=== PATIENT | female | born 1970 | race Caucasian/White ===

== ENCOUNTER 2017-01-28 16:55 | Inpatient (IN) | payer SELFPAY ==
[~2017-01-28] VITALS: Ht 167.6 cm; Wt 106.4 kg
[2017-01-28 17:13] LABS: DAU SCREEN DISCLAIMER
[2017-01-28 17:31] LABS: ASPARTATE AMINO TRANSFERASE 18 U/L (15-37); BLOOD UREA NITROGEN 12 mg/dL (7-18)
[2017-01-28 17:39] LABS: ACETAMINOPHEN < 2 mcg/mL (10-30)
[2017-01-28] MEDS: LORazepam 1MG TABLET PO ONE ×2 (17:50→18:15)
[2017-01-28] MEDS ORDERED: LORazepam 1MG TABLET ONE (18:15)
[2017-01-28] MEDS ORDERED: CEFTRIAXONE PMX 1GM/50ML 50 ML ONE (19:33)
[2017-01-28] MEDS ORDERED: QUET100T4 PO (19:44)
[2017-01-28] MEDS ORDERED: PROP40TA PO (19:44)
[2017-01-28] MEDS ORDERED: SERT50TA PO (19:44)
[2017-01-28] MEDS ORDERED: SODIUM CHLORIDE 0.9% 1,000ML IVBOLUS ONE (20:00)
[2017-01-28] MEDS ORDERED: CEFTRIAXONE 1,000 MG in SODIUM CHLORIDE 0.9% 50 ML IV ONE (21:00)
[2017-01-28] MEDS ORDERED: ONDANSETRON ODT 4 MG PO PRN (21:30)
[2017-01-28] MEDS ORDERED: RANI-276 PO (21:55)
[2017-01-28] MEDS ORDERED: IBUP-1222 PO (21:55)
[2017-01-28] MEDS ORDERED: METF500T4 PO (21:55)
[2017-01-28] MEDS ORDERED: LORA-445 PO (21:55)
[2017-01-28] MEDS ORDERED: DULO30CA2 PO (21:55)
[2017-01-28] MEDS ORDERED: DULO60CA7 PO (21:55)
[2017-01-28] MEDS ORDERED: METO25TA35 PO (21:55)
[2017-01-28] MEDS ORDERED: LISI-170 PO (21:55)
[2017-01-28] MEDS ORDERED: BUSP10TA PO (21:55)
[2017-01-28] MEDS ORDERED: TRAM100T2 PO (21:55)
[2017-01-29] MEDS: LORazepam 0.5MG TABLET PO SCH ×3 (00:04→21:13)
[2017-01-29] MEDS: NS + 20MEQ KCL 1,000 ML IV SCH ×2 (00:04→09:02)
[2017-01-29] MEDS: METOPROLOL TARTRATE 25 MG TABLET PO SCH ×3 (00:05→21:13)
[2017-01-29] MEDS: FAMOTIDINE 20 MG TABLET PO SCH ×3 (00:05→21:13)
[2017-01-29] MEDS: BUSPIRONE 10 MG TABLET PO SCH ×3 (00:05→21:13)
[2017-01-29] MEDS: metFORMIN 500 MG TABLET PO SCH ×3 (00:05→21:13)
[2017-01-29 00:30] VITALS: BP 157/100
[2017-01-29 01:52] VITALS: BP 138/88
[2017-01-29] MEDS ORDERED: ZOLPIDEM 5MG TABLET PO ONE ×3 (02:30→22:30)
[2017-01-29 07:49] VITALS: BP 123/79
[2017-01-29] MEDS: LISINOPRIL 20 MG TABLET PO SCH (09:03)
[2017-01-29] MEDS: DULOXETINE 30 MG CAPSULE.DR PO SCH ×2 (09:03→21:13)
[2017-01-29 13:59] VITALS: BP 124/81
[2017-01-29] MEDS: IBUPROFEN 600 MG TABLET PO PRN (14:56)
[2017-01-29 15:44] VITALS: BP 138/107
[2017-01-29 18:48] LABS: IS PT STATUS REG ER OR PRE ER? NO
[2017-01-29 20:00] VITALS: BP 140/92
[2017-01-29] MEDS ORDERED: CEFTRIAXONE 1,000 MG IM SCH ×2 (21:00→22:03)
[2017-01-29] MEDS ORDERED: LIDOCAINE 1%, 10ML INFIL ONE (22:30)
[2017-01-30 01:24] LABS: IS PT STATUS REG ER OR PRE ER? NO
[2017-01-30 01:25] VITALS: BP 118/80
[2017-01-30] MEDS ORDERED: LORazepam 0.5MG TABLET PO ONE (01:30)
[2017-01-30] MEDS: NS + 20MEQ KCL 1,000 ML IV SCH (02:59)
[2017-01-30 08:00] VITALS: BP 120/85
[2017-01-30] MEDS: LORazepam 0.5MG TABLET PO SCH (09:09)
[2017-01-30] MEDS: BUSPIRONE 10 MG TABLET PO SCH ×2 (09:10→21:01)
[2017-01-30] MEDS: SULFAMETH./TRIMETHOPRIM DS 800MG/160MG TABLET PO SCH ×2 (09:10→21:00)
[2017-01-30] MEDS: LISINOPRIL 20 MG TABLET PO SCH (09:10)
[2017-01-30] MEDS: FAMOTIDINE 20 MG TABLET PO SCH ×2 (09:10→21:00)
[2017-01-30] MEDS: DULOXETINE 30 MG CAPSULE.DR PO SCH ×2 (09:11→21:01)
[2017-01-30] MEDS: metFORMIN 500 MG TABLET PO SCH ×2 (09:11→21:00)
[2017-01-30] MEDS: METOPROLOL TARTRATE 25 MG TABLET PO SCH ×2 (09:11→21:00)
[2017-01-30] MEDS ORDERED: SULF1TAB3 PO (11:20)
[2017-01-30 14:24] VITALS: BP 149/92
[2017-01-30] MEDS: LORazepam 1MG TABLET PO PRN ×2 (14:40→22:57)
[2017-01-30 15:54] LABS: HCG UR OBC PASS
[2017-01-30 19:36] VITALS: BP 125/83
[2017-01-30] MEDS: LORazepam 1MG TABLET PO SCH (21:01)
[2017-01-31 08:15] VITALS: BP 120/86
[2017-01-31] MEDS: METOPROLOL TARTRATE 25 MG TABLET PO SCH ×2 (08:42→22:04)
[2017-01-31] MEDS: BUSPIRONE 10 MG TABLET PO SCH ×2 (08:42→22:04)
[2017-01-31] MEDS: metFORMIN 500 MG TABLET PO SCH ×2 (08:42→22:03)
[2017-01-31] MEDS: LORazepam 1MG TABLET PO SCH ×2 (08:42→21:00)
[2017-01-31] MEDS: SULFAMETH./TRIMETHOPRIM DS 800MG/160MG TABLET PO SCH ×2 (08:43→22:04)
[2017-01-31] MEDS: LISINOPRIL 20 MG TABLET PO SCH (08:43)
[2017-01-31] MEDS: DULOXETINE 30 MG CAPSULE.DR PO SCH ×2 (08:43→22:04)
[2017-01-31] MEDS: FAMOTIDINE 20 MG TABLET PO SCH ×2 (08:43→22:04)
[2017-01-31] MEDS ORDERED: PSEUDOEPHEDRINE 30 MG TABLET PO PRN (12:00)
[2017-01-31] MEDS ORDERED: ACETAMINOPHEN 325 MG TABLET PO PRN (12:00)
[2017-01-31 19:45] VITALS: BP 118/87
[2017-01-31] MEDS: LORazepam 1MG TABLET PO PRN (22:04)
[2017-02-01] MEDS: LORazepam 1MG TABLET PO PRN ×2 (04:52→20:05)
[2017-02-01 08:00] VITALS: BP 98/65
[2017-02-01] MEDS: METOPROLOL TARTRATE 25 MG TABLET PO SCH ×2 (08:42→22:19)
[2017-02-01] MEDS: SULFAMETH./TRIMETHOPRIM DS 800MG/160MG TABLET PO SCH ×2 (08:42→22:19)
[2017-02-01] MEDS: DULOXETINE 30 MG CAPSULE.DR PO SCH ×2 (08:42→22:19)
[2017-02-01] MEDS: FAMOTIDINE 20 MG TABLET PO SCH ×2 (08:42→22:19)
[2017-02-01] MEDS: LISINOPRIL 20 MG TABLET PO SCH (08:42)
[2017-02-01] MEDS: LORazepam 1MG TABLET PO SCH (08:43)
[2017-02-01] MEDS: IBUPROFEN 600 MG TABLET PO PRN (08:43)
[2017-02-01] MEDS: metFORMIN 500 MG TABLET PO SCH ×2 (08:43→21:00)
[2017-02-01] MEDS: BUSPIRONE 10 MG TABLET PO SCH ×2 (08:43→22:19)
[2017-02-01 20:24] VITALS: BP 124/64
[2017-02-02 08:42] VITALS: BP 144/91
[2017-02-02] MEDS: METOPROLOL TARTRATE 25 MG TABLET PO SCH (09:17)
[2017-02-02] MEDS: SULFAMETH./TRIMETHOPRIM DS 800MG/160MG TABLET PO SCH (09:17)
[2017-02-02] MEDS: BUSPIRONE 10 MG TABLET PO SCH (09:17)
[2017-02-02] MEDS: DULOXETINE 30 MG CAPSULE.DR PO SCH (09:18)
[2017-02-02] MEDS: LORazepam 1MG TABLET PO PRN ×2 (09:22→15:26)
[2017-02-02] MEDS: metFORMIN 500 MG TABLET PO SCH (10:16)
[2017-02-02] MEDS: FAMOTIDINE 20 MG TABLET PO SCH (11:38)
[2017-02-02] MEDS: LISINOPRIL 20 MG TABLET PO SCH (11:38)
[2017-02-02] MEDS: IBUPROFEN 600 MG TABLET PO PRN (11:41)
== END 2017-02-02 18:30 | DRG 690 ==
LOC: ED 20:06 → INTOOBSV 20:40 → EDIP 20:40 → 3NE 22:58 → OBSVTOIN 01-30 09:33 → 3E 01-30 13:46
PROVIDERS: ADMIT Family Medicine; ATTEND Family Medicine
DX: N30.00 Acute cystitis without hematuria (principal); R45.851 Suicidal ideations; E11.9 Type 2 diabetes mellitus without complications; E66.9 Obesity, unspecified; F32.9 Major depressive disorder, single episode, unspecified; F43.10 Post-traumatic stress disorder, unspecified; G89.4 Chronic pain syndrome; I10 Essential (primary) hypertension; K21.9 Gastro-esophageal reflux disease without esophagitis; R07.9 Chest pain, unspecified; M54.2 Cervicalgia; M54.5 Low back pain; M79.671 Pain in right foot; G47.9 Sleep disorder, unspecified; R51 Headache; Z68.37 Body mass index [BMI] 37.0-37.9, adult; Z88.1 Allergy status to other antibiotic agents; Z83.3 Family history of diabetes mellitus; Z82.41 Family history of sudden cardiac death; Z87.820 Personal history of traumatic brain injury; Z88.5 Allergy status to narcotic agent; Z90.49 Acquired absence of other specified parts of digestive tract
CPT/HCPCS: 36415; 71010; 80053; 80307; 80329; 81001; 81025; 83605; 84145; 84484; 85025; 87040; 87086; 93005; 96365; G0378; J0696; J3480; J3490; Q0162; G0480; J7030

== ENCOUNTER 2017-02-09 18:19 | Observation (INO) | payer SELFPAY ==
[~2017-02-09] VITALS: Ht 167.6 cm; Wt 103.5 kg
[~2017-02-09 18:19] MED LIST: BUSP10TA PO; DULO30CA2 PO; DULO60CA7 PO; IBUP-1222 PO; LISI-170 PO; LORA-445 PO; METF500T4 PO; METO25TA35 PO; PROP40TA PO; QUET100T4 PO; RANI-276 PO; SERT50TA PO; SULF1TAB3 PO; TRAM100T2 PO
[2017-02-09] MEDS ORDERED: SODIUM CHLORIDE FLUSH 10ML SYR IVF ONE (19:00)
[2017-02-09] MEDS ORDERED: SODIUM CHLORIDE 0.9% 1,000ML IVBOLUS ONE (19:00)
[2017-02-09] MEDS ORDERED: ASPIRIN 81 MG TABLET CHEW PO ONE (19:00)
[2017-02-09] MEDS ORDERED: LORA-446 PO (19:28)
[2017-02-09] MEDS ORDERED: morphine SULFATE 10 MG/ML, 1ML IVPush ONE (19:30)
[2017-02-09 19:37] LABS: BLOOD UREA NITROGEN 13 mg/dL (7-18)
[2017-02-09 19:42] LABS: ASPARTATE AMINO TRANSFERASE 20 U/L (15-37)
[2017-02-09 19:43] LABS: IS PT STATUS REG ER OR PRE ER? YES
[2017-02-09] MEDS ORDERED: MORPHINE SULFATE 4 MG/ML, 1ML ONE (19:45)
[2017-02-09] MEDS ORDERED: ASPIRIN 81 MG TABLET CHEW ONE (19:45)
[2017-02-09] MEDS ORDERED: KETOROLAC 30 MG/1 ML IVPush ONE (20:30)
[2017-02-09] MEDS ORDERED: KETOROLAC 30 MG/1 ML ONE (21:12)
[2017-02-09] MEDS ORDERED: IBUPROFEN 600 MG TABLET PO PRN (21:30)
[2017-02-09] MEDS ORDERED: NITROGLYCERIN 0.4 MG BOTTLE (25 TABS) SL PRN (21:30)
[2017-02-09] MEDS ORDERED: DEXTROSE 4 GM TAB.CHEW PO PRN (21:30)
[2017-02-09] MEDS ORDERED: hydrALAzine 20 MG/ML, 1ML IVPush PRN (21:30)
[2017-02-09] MEDS ORDERED: GLUCAGON 1 MG IM PRN (21:30)
[2017-02-09] MEDS ORDERED: ACETAMINOPHEN 325 MG TABLET PO PRN (21:30)
[2017-02-09] MEDS ORDERED: NITROGLYCERIN 0.4 MG/SPRAY SL PRN (21:30)
[2017-02-09] MEDS ORDERED: DEXTROSE 50%, 50ML SYRINGE IVPush PRN (21:30)
[2017-02-09] MEDS ORDERED: LABETALOL 5MG/ML 40ML VIAL IVPush PRN (21:30)
[2017-02-09 22:10] VITALS: BP 130/84
[2017-02-09] MEDS: LORazepam 1MG TABLET PO PRN (23:27)
[2017-02-09] MEDS: HEPARIN 5,000 UNITS/ML, 1ML SQ SCH (23:29)
[2017-02-09] MEDS ORDERED: ZOLPIDEM 5MG TABLET PO PRN (23:30)
[2017-02-10 01:18] LABS: IS PT STATUS REG ER OR PRE ER? NO
[2017-02-10 03:27] VITALS: BP 126/89
[2017-02-10] MEDS: HEPARIN 5,000 UNITS/ML, 1ML SQ SCH ×2 (05:52→13:30)
[2017-02-10] MEDS ORDERED: ASPIRIN 325 MG TABLET EC PO SCH (06:00)
[2017-02-10] MEDS: INSULIN ASPART 100 UNITS/ML, PEN SQ-INSULIN SCH ×2 (07:00→11:00)
[2017-02-10 07:24] LABS: BLOOD UREA NITROGEN 15 mg/dL (7-18)
[2017-02-10 07:34] LABS: IS PT STATUS REG ER OR PRE ER? YES
[2017-02-10 08:05] VITALS: BP 124/87
[2017-02-10] MEDS ORDERED: REGADENOSON 0.4 MG/5 ML SYRINGE ONE (08:32)
[2017-02-10] MEDS ORDERED: BUSPIRONE 10 MG TABLET PO SCH (09:00)
[2017-02-10] MEDS ORDERED: LISINOPRIL 20 MG TABLET PO SCH (09:00)
[2017-02-10] MEDS ORDERED: DULOXETINE 30 MG CAPSULE.DR PO SCH (09:00)
[2017-02-10] MEDS ORDERED: SODIUM CHLORIDE FLUSH 10ML SYR IVF SCH (09:00)
[2017-02-10] MEDS: LORazepam 1MG TABLET PO PRN (11:21)
[2017-02-10] MEDS ORDERED: METOPROLOL TARTRATE 25 MG TABLET PO SCH (21:00)
== END 2017-02-10 16:12 | disposition home or self-care (01) ==
LOC: ED 19:19 → EDIP 20:28 → INTOOBSV 20:28 → 5SO 21:48 → DCLOUNGE 02-10 15:47 → UNDODISIN 02-10 16:12
PROVIDERS: ADMIT Family Medicine; ATTEND Family Medicine
DX: R07.89 Other chest pain (principal); E11.9 Type 2 diabetes mellitus without complications; E78.5 Hyperlipidemia, unspecified; I10 Essential (primary) hypertension; E87.6 Hypokalemia; Z82.41 Family history of sudden cardiac death; Z80.1 Family history of malignant neoplasm of trachea, bronchus and lung; Z80.0 Family history of malignant neoplasm of digestive organs; Z82.49 Family history of ischemic heart disease and other diseases of the circulatory system; Z83.3 Family history of diabetes mellitus; Z88.1 Allergy status to other antibiotic agents; Z88.5 Allergy status to narcotic agent; D72.829 Elevated white blood cell count, unspecified
CPT/HCPCS: 36415; 71020; 78452; 80048; 80053; 83036; 84484; 85025; 85379; 93005; 93017; 96361; 96372; 96374; 96375; 99285; A9502; C9898; G0378; J1644; J1885; J2270; J2785; J7030

== ENCOUNTER 2017-06-02 19:52 | Emergency (ER) | payer SELFPAY ==
[~2017-06-02] VITALS: Ht 167.6 cm; Wt 104.5 kg
[~2017-06-02 19:52] MED LIST changes: +LORA-446 PO; +SULF-169 PO; -SULF1TAB3 PO
[2017-06-02] MEDS ORDERED: LABETALOL 5MG/ML, 20ML IVPush STA (20:07)
[2017-06-02] MEDS ORDERED: ATOR10TA9 PO (20:26)
[2017-06-02] MEDS ORDERED: ASPIRIN 81 MG TABLET CHEW PO ONE (20:30)
[2017-06-02] MEDS ORDERED: ENALAPRILAT 1.25 MG/ML, 2ML IV ONE (20:30)
[2017-06-02] MEDS ORDERED: MORPHINE SULFATE 4 MG/ML, 1ML IVPush ONE (20:30)
[2017-06-02 20:33] LABS: HEMATOCRIT 46.4 % (34.6-47.8); HEMOGLOBIN 15.7 g/dL (11.7-16.4); WHITE BLOOD COUNT 14.8 x10^3/uL (3.4-10)
[2017-06-02 20:36] LABS: HCG UR LOT HCG7030192
[2017-06-02] MEDS ORDERED: ENALAPRILAT 1.25 MG/ML, 2ML ONE (20:36)
[2017-06-02] MEDS ORDERED: LABETALOL 5MG/ML, 20ML ONE (20:36)
[2017-06-02 20:38] LABS: ASPARTATE AMINO TRANSFERASE 20 U/L (15-37); BLOOD UREA NITROGEN 15 mg/dL (7-18)
[2017-06-02 20:43] LABS: IS PT STATUS REG ER OR PRE ER? YES
[2017-06-02] MEDS ORDERED: morphine SULFATE 10 MG/ML, 1ML ONE (20:46)
[2017-06-02] MEDS ORDERED: ASPIRIN 81 MG TABLET CHEW ONE (20:46)
[2017-06-02 21:00] LABS: HCG UR OBC PASS
[2017-06-02] MEDS ORDERED: CEFTRIAXONE 1,000 MG IM ONE (21:30)
[2017-06-02] MEDS ORDERED: CEFTRIAXONE 1,000 MG ONE (21:37)
[2017-06-02 21:51] VITALS: BP 142/102
== END 2017-06-02 22:13 | disposition home or self-care (01) ==
LOC: ED 20:36
DX: M47.892 Other spondylosis, cervical region (principal); N30.00 Acute cystitis without hematuria; E11.65 Type 2 diabetes mellitus with hyperglycemia; I10 Essential (primary) hypertension; E11.40 Type 2 diabetes mellitus with diabetic neuropathy, unspecified; E78.5 Hyperlipidemia, unspecified
CPT/HCPCS: 36415; 70450; 71010; 72125; 80053; 81001; 81025; 84484; 85025; 87077; 87086; 87186; 93005; 96372; 96374; 96375; 99285; J0696

== ENCOUNTER 2017-10-14 13:57 | Inpatient (IN) | payer MEDICAID ==
[~2017-10-14] VITALS: Ht 165.1 cm; Wt 98.0 kg
[~2017-10-14 13:57] MED LIST changes: +ATOR10TA9 PO
[2017-10-14] MEDS ORDERED: NITROGLYCERIN OINT 2%, 1GM TP ONE ×2 (14:30→14:37)
[2017-10-14] MEDS ORDERED: LORazepam 2 MG/ML, 1ML IVPush ONE (14:30)
[2017-10-14] MEDS ORDERED: SODIUM CHLORIDE 0.9% 1,000ML IVBOLUS ONE (14:30)
[2017-10-14] MEDS ORDERED: ASPIRIN 81 MG TABLET CHEW PO ONE (14:30)
[2017-10-14] MEDS ORDERED: NITROGLYCERIN SINGLE TAB 0.4 MG SL PRN (14:30)
[2017-10-14] MEDS ORDERED: SODIUM CHLORIDE FLUSH 10ML SYR IVF ONE (14:30)
[2017-10-14] MEDS ORDERED: ACETAMINOPHEN 325 MG TABLET PO ONE (14:30)
[2017-10-14] MEDS ORDERED: NITROGLYCERIN SINGLE TAB 0.4 MG SL ONE (14:37)
[2017-10-14] MEDS ORDERED: ACETAMINOPHEN 325 MG TABLET ONE (14:37)
[2017-10-14] MEDS ORDERED: LORazepam 2 MG/ML, 1ML ONE (14:39)
[2017-10-14 14:59] LABS: BASOPHILS # (AUTO) 0.06 x10^3/uL (0-0.1); BASOPHILS % (AUTO) 0 % (0-1); EOSINOPHILS # (AUTO) 0.36 x10^3/uL (0-0.4); EOSINOPHILS % (AUTO) 3 % (1-7); LYMPHOCYTES # (AUTO) 3.11 x10^3/uL (1-3.4); LYMPHOCYTES % (AUTO) 23 % (22-44); MD NO; MEAN CORPUSCULAR HEMOGLOBIN 30.3 pg (27.0-34.8); MEAN CORPUSCULAR HGB CONC 33.4 g/dL (32.4-35.8); MEAN CORPUSCULAR VOLUME 90.5 fL (80-100); MEAN PLATELET VOLUME 8.2 fL (7.4-10.4); MONOCYTES # (AUTO) 0.67 x10^3/uL (0.2-0.8); MONOCYTES % (AUTO) 5 % (2-9); NEUTROPHILS # (AUTO) 9.06 x10^3/uL (1.8-6.8); NEUTROPHILS % (AUTO) 68 % (42-75); PLATELET COUNT 339 x10^3/uL (130-400); RED BLOOD COUNT 5.14 x10^6/uL (3.82-5.3); RED CELL DISTRIBUTION WIDTH 12.6 % (9.6-15.2)
[2017-10-14 15:11] LABS: ALBUMIN 3.5 g/dL (3.4-5.0); CALCIUM 8.4 mg/dL (8.5-10.1); CHLORIDE 102 mmol/L (98-107)
[2017-10-14 15:18] LABS: ALANINE AMINOTRANSFERASE 47 U/L (12-78); ALKALINE PHOSPHATASE 69 U/L (45-117); ANION GAP 10 mmol/L (5-15); BILIRUBIN,TOTAL 0.7 mg/dL (0.2-1.0); TOTAL PROTEIN 7.5 g/dL (6.4-8.2); TROPONIN I < 0.015 ng/mL (0.000-0.045)
[2017-10-14] MEDS ORDERED: METOPROLOL 1 MG/ML, 5ML IVPush PRN (15:30)
[2017-10-14] MEDS ORDERED: METOPROLOL 1 MG/ML, 5ML ONE (17:26)
[2017-10-14] MEDS ORDERED: KETOROLAC 30 MG/1 ML ONE (17:26)
[2017-10-14] MEDS ORDERED: KETOROLAC 30 MG/1 ML IVPush ONE (17:30)
[2017-10-14] MEDS ORDERED: LISI-170 PO (18:04)
[2017-10-14 18:18] VITALS: BP 142/100
[2017-10-14] MEDS ORDERED: ENALAPRILAT 1.25 MG/ML, 2ML IVPush PRN (18:30)
[2017-10-14] MEDS ORDERED: LABETALOL 5MG/ML, 20ML IVPush PRN (18:30)
[2017-10-14 18:49] VITALS: BP 137/93
[2017-10-14] MEDS ORDERED: NITROGLYCERIN 0.4 MG BOTTLE (25 TABS) SL ONE (20:06)
[2017-10-14] MEDS: BUSPIRONE 10 MG TABLET PO SCH (20:12)
[2017-10-14] MEDS: LORazepam 1MG TABLET PO SCH (20:13)
[2017-10-14] MEDS: DULOXETINE 30 MG CAPSULE.DR PO SCH (20:13)
[2017-10-14] MEDS: metFORMIN 500 MG TABLET PO SCH (20:13)
[2017-10-14 20:18] VITALS: BP 141/95
[2017-10-14 20:24] VITALS: BP 137/93
[2017-10-14] MEDS ORDERED: NITROGLYCERIN 0.4 MG BOTTLE (25 TABS) SL PRN (20:30)
[2017-10-14 21:00] LABS: TROPONIN I < 0.015 ng/mL (0.000-0.045)
[2017-10-15] VITALS (7 sets, daily range): BP systolic 107–155; BP diastolic 74–113
[2017-10-15] MEDS ORDERED: KETOROLAC 30 MG/1 ML ONE (03:24)
[2017-10-15] MEDS ORDERED: KETOROLAC 30 MG/1 ML IVPush ONE (03:30)
[2017-10-15 05:59] LABS: CHOL/HDL RATIO 5.7; HEMOGLOBIN A1C 7.3 % (4.2-6.3); LDL/HDL RATIO 3.1 (0.5-3.0)
[2017-10-15 06:40] LABS: ALANINE AMINOTRANSFERASE 45 U/L (12-78); ALBUMIN 3.1 g/dL (3.4-5.0); ANION GAP 8 mmol/L (5-15); CHLORIDE 107 mmol/L (98-107); CREATININE 0.98 mg/dL (0.55-1.02)
[2017-10-15 06:41] LABS: BASOPHILS # (AUTO) 0.05 x10^3/uL (0-0.1); BASOPHILS % (AUTO) 0 % (0-1); EOSINOPHILS # (AUTO) 0.48 x10^3/uL (0-0.4); EOSINOPHILS % (AUTO) 4 % (1-7); LYMPHOCYTES # (AUTO) 3.47 x10^3/uL (1-3.4); LYMPHOCYTES % (AUTO) 26 % (22-44); MD NO; MEAN CORPUSCULAR HEMOGLOBIN 30.7 pg (27.0-34.8); MEAN CORPUSCULAR HGB CONC 33.8 g/dL (32.4-35.8); MEAN CORPUSCULAR VOLUME 90.8 fL (80-100); MEAN PLATELET VOLUME 8.7 fL (7.4-10.4); MONOCYTES # (AUTO) 0.86 x10^3/uL (0.2-0.8); MONOCYTES % (AUTO) 6 % (2-9); NEUTROPHILS % (AUTO) 64 % (42-75); PLATELET COUNT 298 x10^3/uL (130-400); RED BLOOD COUNT 4.65 x10^6/uL (3.82-5.3); RED CELL DISTRIBUTION WIDTH 13.1 % (9.6-15.2)
[2017-10-15 06:42] LABS: ALKALINE PHOSPHATASE 59 U/L (45-117); BILIRUBIN,TOTAL 0.4 mg/dL (0.2-1.0); TOTAL PROTEIN 6.6 g/dL (6.4-8.2)
[2017-10-15] MEDS: BUSPIRONE 10 MG TABLET PO SCH ×2 (07:47→21:14)
[2017-10-15] MEDS: DULOXETINE 30 MG CAPSULE.DR PO SCH ×2 (07:47→21:14)
[2017-10-15] MEDS: metFORMIN 500 MG TABLET PO SCH ×3 (07:48→21:00)
[2017-10-15] MEDS: LISINOPRIL 20 MG TABLET PO SCH (07:48)
[2017-10-15] MEDS: LORazepam 1MG TABLET PO SCH ×2 (07:56→21:14)
[2017-10-15] MEDS: METOPROLOL TARTRATE 25 MG TABLET PO SCH ×2 (11:13→21:13)
[2017-10-15 20:20] LABS: CULTURE INDICATED? YES; MICROSCOPIC INDICATED
[2017-10-16 05:45] LABS: BASOPHILS # (AUTO) 0.16 x10^3/uL (0-0.1); BASOPHILS % (AUTO) 1 % (0-1); EOSINOPHILS # (AUTO) 0.46 x10^3/uL (0-0.4); EOSINOPHILS % (AUTO) 4 % (1-7); LYMPHOCYTES # (AUTO) 4.21 x10^3/uL (1-3.4); LYMPHOCYTES % (AUTO) 33 % (22-44); MD NO; MEAN CORPUSCULAR HEMOGLOBIN 30.4 pg (27.0-34.8); MEAN CORPUSCULAR HGB CONC 33.6 g/dL (32.4-35.8); MEAN CORPUSCULAR VOLUME 90.5 fL (80-100); MEAN PLATELET VOLUME 8.2 fL (7.4-10.4); MONOCYTES # (AUTO) 0.93 x10^3/uL (0.2-0.8); MONOCYTES % (AUTO) 7 % (2-9); NEUTROPHILS # (AUTO) 7.06 x10^3/uL (1.8-6.8); NEUTROPHILS % (AUTO) 55 % (42-75); PLATELET COUNT 293 x10^3/uL (130-400); RED BLOOD COUNT 4.52 x10^6/uL (3.82-5.3); RED CELL DISTRIBUTION WIDTH 13.1 % (9.6-15.2)
[2017-10-16 05:55] LABS: CHLORIDE 107 mmol/L (98-107)
[2017-10-16 06:07] LABS: ALBUMIN 2.9 g/dL (3.4-5.0); ANION GAP 7 mmol/L (5-15); CREATININE 0.75 mg/dL (0.55-1.02)
[2017-10-16] MEDS ORDERED: ACETAMINOPHEN 325 MG TABLET PO PRN (07:00)
[2017-10-16 08:05] VITALS: BP 113/77
[2017-10-16] MEDS: metFORMIN 500 MG TABLET PO SCH (09:00)
[2017-10-16] MEDS: LORazepam 1MG TABLET PO SCH (09:51)
[2017-10-16] MEDS: DULOXETINE 30 MG CAPSULE.DR PO SCH (09:51)
[2017-10-16] MEDS: BUSPIRONE 10 MG TABLET PO SCH (09:51)
[2017-10-16] MEDS: LISINOPRIL 20 MG TABLET PO SCH (09:52)
[2017-10-16] MEDS: METOPROLOL TARTRATE 25 MG TABLET PO SCH (09:52)
[2017-10-16] MEDS ORDERED: hydrOXYzine 25 MG/ML IM PRN (10:00)
[2017-10-16] MEDS ORDERED: OLAN2.5T3 PO ×2 (17:52→17:58)
[2017-10-16] MEDS ORDERED: FLUO20TA25 PO (17:52)
[2017-10-16 19:28] VITALS: BP 135/94
[2017-10-16] MEDS ORDERED: ATORVASTATIN 20 MG TABLET PO SCH (21:00)
== END 2017-10-16 19:49 | disposition home or self-care (01) | DRG 313 ==
LOC: ED 14:00 → INTOOBSV 16:32 → OBSVTOIN 16:32 → EDIP 16:32 → 5SO 17:58 → 2N 10-15 18:44
PROVIDERS: ADMIT Internal Medicine; ATTEND Internal Medicine
DX: R07.9 Chest pain, unspecified (principal); I25.10 Atherosclerotic heart disease of native coronary artery without angina pectoris; E11.40 Type 2 diabetes mellitus with diabetic neuropathy, unspecified; R45.851 Suicidal ideations; E66.3 Overweight; E78.1 Pure hyperglyceridemia; F32.9 Major depressive disorder, single episode, unspecified; F43.10 Post-traumatic stress disorder, unspecified; G89.29 Other chronic pain; I10 Essential (primary) hypertension; I16.0 Hypertensive urgency; Z68.36 Body mass index [BMI] 36.0-36.9, adult; Z88.8 Allergy status to other drugs, medicaments and biological substances; Z79.82 Long term (current) use of aspirin; Z79.84 Long term (current) use of oral hypoglycemic drugs; Z82.49 Family history of ischemic heart disease and other diseases of the circulatory system; Z79.899 Other long term (current) drug therapy; Z80.0 Family history of malignant neoplasm of digestive organs; Z80.1 Family history of malignant neoplasm of trachea, bronchus and lung; Z83.3 Family history of diabetes mellitus
CPT/HCPCS: 36415; 70450; 71045; 80048; 80053; 80061; 81001; 82040; 83036; 83880; 84484; 84703; 85025; 87086; 93005; J1885; J2060; J3410; J7030

== ENCOUNTER 2019-01-26 18:05 | Emergency (ER) | payer MEDICAID ==
[~2019-01-26] VITALS: Ht 167.6 cm; Wt 91.0 kg
[~2019-01-26 18:05] MED LIST changes: +FLUO20TA25 PO; +METF500T17 PO; -METF500T4 PO; +OLAN2.5T3 PO; -RANI-276 PO; +RANI-448 PO; -TRAM100T2 PO; +TRAM100T33 PO
[2019-01-26 18:12] VITALS: BP 164/107
--- NOTE | 2019-01-26 18:26 | NUR ---
REPAIRER KILN CAR: PT CHANGING INTO HOSPITAL GOWN, ALL BELONGINGS TO BE SECURED IN LOCKER, PT PROVIDING URINE SAMPLE AT THIS TIME
[2019-01-26 18:52] LABS: BASOPHILS # (AUTO) 0.15 x10^3/uL (0-0.1); BASOPHILS % (AUTO) 1 % (0-1); EOSINOPHILS # (AUTO) 0.24 x10^3/uL (0-0.4); EOSINOPHILS % (AUTO) 2 % (1-7); LYMPHOCYTES # (AUTO) 3.09 x10^3/uL (1-3.4); LYMPHOCYTES % (AUTO) 28 % (22-44); MD NO; MEAN CORPUSCULAR HEMOGLOBIN 31.3 pg (27.0-34.8); MEAN CORPUSCULAR HGB CONC 33.4 g/dL (32.4-35.8); MEAN CORPUSCULAR VOLUME 93.6 fL (80-100); MEAN PLATELET VOLUME 8.8 fL (7.4-10.4); MONOCYTES # (AUTO) 0.78 x10^3/uL (0.2-0.8); MONOCYTES % (AUTO) 7 % (2-9); NEUTROPHILS # (AUTO) 6.65 x10^3/uL (1.8-6.8); NEUTROPHILS % (AUTO) 61 % (42-75); PLATELET COUNT 357 x10^3/uL (130-400); RED BLOOD COUNT 5.05 x10^6/uL (3.82-5.3); RED CELL DISTRIBUTION WIDTH 13.1 % (9.6-15.2)
[2019-01-26 18:53] LABS: AMPHETAMINE SCREEN, URINE Negative (Negative); BARBITURATE SCREEN, URINE Negative (Negative); BENZODIAZEPINE SCREEN, URINE Negative (Negative); CANNABINOID SCREEN, URINE Positive (Negative); COCAINE SCREEN, URINE Negative (Negative); METHADONE SCREEN, URINE Negative (Negative); MICROSCOPIC INDICATED; OPIATE SCREEN, URINE Negative (Negative)
[2019-01-26 18:54] LABS: CULTURE INDICATED? YES
[2019-01-26 19:11] LABS: ALANINE AMINOTRANSFERASE 21 U/L (12-78); ALBUMIN 3.7 g/dL (3.4-5.0); ANION GAP 7 mmol/L (5-15); CALCIUM 8.9 mg/dL (8.5-10.1); CHLORIDE 109 mmol/L (98-107); CREATININE 1.03 mg/dL (0.55-1.02)
[2019-01-26 19:14] LABS: ALKALINE PHOSPHATASE 61 U/L (45-117); BILIRUBIN,TOTAL 0.4 mg/dL (0.2-1.0); SALICYLATE LEVEL < 1.7 mg/dL (2.8-20.0); TOTAL PROTEIN 7.9 g/dL (6.4-8.2)
--- NOTE | 2019-01-26 19:28 | NUR ---
ALL RESULTS BACK, PT FOR RECHECK.
--- NOTE | 2019-01-26 19:40 | NUR ---
WARM BLANKET PROVIDED, PT UPDATED ON POC. PT COOPERATIVE AND PLEASANT AT THIS TIME.
--- NOTE | 2019-01-26 19:41 | NUR ---
[facility] called.
[2019-01-26] MEDS ORDERED: CLON2TAB PO (19:47)
[2019-01-26] MEDS ORDERED: FLUO40CA2 PO (19:47)
[2019-01-26] MEDS ORDERED: ASPI-496 PO (19:49)
[2019-01-26] MEDS ORDERED: PROP20TA PO (19:49)
--- NOTE | 2019-01-26 20:26 | NUR ---
documents sent to [facility] as requested.
--- NOTE | 2019-01-26 20:39 | NUR ---
[facility] CLINICAL DOCUMENTATION DEVELOPER IN TO SEE PT.
--- NOTE | 2019-01-26 20:54 | NUR ---
Carmen from [facility] at BS.
--- NOTE | 2019-01-26 21:50 | NUR ---
PT DISCHARGED HOME WITH BOYFRIEND.
== END 2019-01-26 21:52 | disposition home or self-care (01) ==
LOC: ED 21:46
DX: R45.851 Suicidal ideations (principal); F33.9 Major depressive disorder, recurrent, unspecified; R45.850 Homicidal ideations; I10 Essential (primary) hypertension; E78.5 Hyperlipidemia, unspecified; F43.10 Post-traumatic stress disorder, unspecified
CPT/HCPCS: 36415; 80053; 80307; 81001; 85025; 87086; 99284

== ENCOUNTER 2019-05-17 21:03 | Inpatient (IN) | payer MEDICAID ==
[~2019-05-17] VITALS: Ht 170.2 cm; Wt 94.2 kg
[~2019-05-17 21:03] MED LIST changes: +ASPI-496 PO; +ATOR-2 PO; +CEFD300C37 PO; +CLON2TAB PO; +CLOP75TA52 PO; +FLUO20CA8 PO; +FLUO40CA2 PO; +LIDO700A20 TD; +OXYC1TAB7 PO; +POLY17PO5 PO; +PRAZ1CAP2 PO; +PROP20TA PO
--- NOTE | 2019-05-17 21:10 | NUR ---
PATIENT KAREN BONILLA FROM [facility] FOR CP STARTING TODAY AT 1830, PATIENT DC'D FROM [facility] YESTERDAY FOR CVA WITH LEFT SIDED DEFICITS PER EMS. A+OX4. HX A-FIB, ANXIETY, CVA. IV ESTABLISHED AND [address] ADMINISTERED EN ROUTE. ENTRY OPERATOR ON PATIENT, EKG COMPLETED BY EMT, AWAITING MD ORDERS CALL LIGHT WITHIN REACH.
[2019-05-17] MEDS ORDERED: ONDANSETRON 2MG/ML, 2ML ONE (21:20)
[2019-05-17] MEDS ORDERED: MORPHINE SULFATE 4 MG/ML, 1ML ONE (21:20)
[2019-05-17 21:25] LABS: BASOPHILS # (AUTO) 0.06 x10^3/uL (0-0.1); BASOPHILS % (AUTO) 1 % (0-1); EOSINOPHILS # (AUTO) 0.35 x10^3/uL (0-0.4); EOSINOPHILS % (AUTO) 3 % (1-7); LYMPHOCYTES # (AUTO) 2.87 x10^3/uL (1-3.4); LYMPHOCYTES % (AUTO) 26 % (22-44); MD NO; MEAN CORPUSCULAR HEMOGLOBIN 31.4 pg (27.0-34.8); MEAN CORPUSCULAR HGB CONC 33.4 g/dL (32.4-35.8); MEAN CORPUSCULAR VOLUME 94.1 fL (80-100); MEAN PLATELET VOLUME 8.1 fL (7.4-10.4); MONOCYTES # (AUTO) 0.82 x10^3/uL (0.2-0.8); MONOCYTES % (AUTO) 7 % (2-9); NEUTROPHILS # (AUTO) 7.04 x10^3/uL (1.8-6.8); NEUTROPHILS % (AUTO) 63 % (42-75); PLATELET COUNT 359 x10^3/uL (130-400); RED BLOOD COUNT 4.37 x10^6/uL (3.82-5.3); RED CELL DISTRIBUTION WIDTH 12.7 % (9.6-15.2)
[2019-05-17] MEDS ORDERED: SODIUM CHLORIDE FLUSH 10ML SYR IVF ONE (21:30)
[2019-05-17] MEDS ORDERED: MORPHINE SULFATE 4 MG/ML, 1ML IVPush PRN (21:30)
[2019-05-17] MEDS ORDERED: ONDANSETRON 2MG/ML, 2ML IVPush ONE (21:30)
[2019-05-17 21:36] LABS: ALANINE AMINOTRANSFERASE 47 U/L (12-78); ALBUMIN 3.2 g/dL (3.4-5.0); ANION GAP 7 mmol/L (5-15); CALCIUM 8.7 mg/dL (8.5-10.1); CHLORIDE 108 mmol/L (98-107); CREATININE 0.76 mg/dL (0.55-1.02)
[2019-05-17 21:41] LABS: ALKALINE PHOSPHATASE 55 U/L (45-117); BILIRUBIN,TOTAL 0.3 mg/dL (0.2-1.0); TOTAL PROTEIN 7.2 g/dL (6.4-8.2); TROPONIN I < 0.015 ng/mL (0.000-0.045)
--- NOTE | 2019-05-17 21:57 | NUR ---
PATIENT TO CT VIA JOSHUA ESCOBAR.
--- NOTE | 2019-05-17 22:09 | NUR ---
PATIENT BACK FROM CT, A+OX4.
[2019-05-17] MEDS ORDERED: OMNIPAQUE 350 MG/ML, 100ML BOTTLE ONE (22:16)
--- NOTE | 2019-05-17 22:36 | NUR ---
VS UPDATED IN CHART, PATIENT TO BE ADMITTED, AWAITING BED ASSIGNMENT. PATIENT UPDATED ON POC. PATIENT PLACED ON BED JOSHUA DORMAN.
--- NOTE | 2019-05-17 22:57 | NUR ---
REPORT TO HENRY WILSON.
[2019-05-17 23:24] VITALS: BP 109/72
[2019-05-18] VITALS (7 sets, daily range): BP systolic 101–131; BP diastolic 65–96
[2019-05-18] MEDS ORDERED: DOCUSATE 100 MG CAPSULE PO PRN (01:00)
[2019-05-18] MEDS ORDERED: POLYETHYLENE GLYCOL 17 GM PACKET PO PRN (01:00)
[2019-05-18] MEDS ORDERED: ACETAMINOPHEN 325 MG TABLET PO PRN (01:00)
[2019-05-18] MEDS ORDERED: hydrALAzine 20 MG/ML, 1ML IVPush PRN (01:00)
[2019-05-18] MEDS ORDERED: ONDANSETRON ODT 4 MG PO PRN (01:00)
[2019-05-18] MEDS: OXYcodone/APAP 5/325MG TABLET PO PRN ×3 (01:21→17:35)
[2019-05-18 03:52] LABS: TROPONIN I < 0.015 ng/mL (0.000-0.045)
[2019-05-18] MEDS: BUTALB/APAP/CAFFEINE 50MG/325MG/40MG PO PRN (05:35)
[2019-05-18 09:26] LABS: TROPONIN I < 0.015 ng/mL (0.000-0.045)
[2019-05-18] MEDS: CLOPIDOGREL 75 MG TABLET PO SCH (09:50)
[2019-05-18] MEDS: SERTRALINE 50MG TABLET PO SCH (09:50)
[2019-05-18] MEDS: PROPRANOLOL 20 MG TABLET PO SCH (09:51)
[2019-05-18] MEDS: ENOXAPARIN 40 MG/0.4 ML SQ SCH (10:01)
[2019-05-18] MEDS: OLANZAPINE 2.5 MG TABLET PO SCH (20:51)
[2019-05-18] MEDS: ATORVASTATIN 80 MG TABLET PO SCH (20:51)
[2019-05-18] MEDS: PRAZOSIN 1 MG CAPSULE PO SCH (20:52)
[2019-05-19] MEDS: OXYcodone/APAP 5/325MG TABLET PO PRN (02:59)
[2019-05-19 05:50] LABS: BASOPHILS # (AUTO) 0.05 x10^3/uL (0-0.1); BASOPHILS % (AUTO) 1 % (0-1); EOSINOPHILS # (AUTO) 0.38 x10^3/uL (0-0.4); EOSINOPHILS % (AUTO) 5 % (1-7); LYMPHOCYTES # (AUTO) 2.73 x10^3/uL (1-3.4); LYMPHOCYTES % (AUTO) 34 % (22-44); MD NO; MEAN CORPUSCULAR HEMOGLOBIN 31.4 pg (27.0-34.8); MEAN CORPUSCULAR VOLUME 95.3 fL (80-100); MEAN PLATELET VOLUME 8.1 fL (7.4-10.4); MONOCYTES # (AUTO) 0.63 x10^3/uL (0.2-0.8); MONOCYTES % (AUTO) 8 % (2-9); NEUTROPHILS # (AUTO) 4.33 x10^3/uL (1.8-6.8); NEUTROPHILS % (AUTO) 53 % (42-75); PLATELET COUNT 311 x10^3/uL (130-400); RED BLOOD COUNT 4.16 x10^6/uL (3.82-5.3); RED CELL DISTRIBUTION WIDTH 12.9 % (9.6-15.2)
[2019-05-19 05:57] LABS: ANION GAP 6 mmol/L (5-15); CALCIUM 8.7 mg/dL (8.5-10.1); CHLORIDE 108 mmol/L (98-107); CREATININE 0.92 mg/dL (0.55-1.02)
[2019-05-19 07:00] VITALS: BP 106/73
[2019-05-19] MEDS: CLOPIDOGREL 75 MG TABLET PO SCH (09:00)
[2019-05-19] MEDS: PROPRANOLOL 20 MG TABLET PO SCH (09:00)
[2019-05-19] MEDS: SERTRALINE 50MG TABLET PO SCH (09:00)
[2019-05-19] MEDS ORDERED: REGADENOSON 0.4 MG/5 ML SYRINGE ONE (09:39)
[2019-05-19 12:06] VITALS: BP 129/92
[2019-05-19] MEDS: ENOXAPARIN 40 MG/0.4 ML SQ SCH (14:27)
--- NOTE | 2019-05-19 17:05 | NUR ---
REC CHOPPED/THIN LIQUID DIET; swallow precautions sheet posted at bedside Addendum: 05/19/19 at [address] Amended: Links added.
[2019-05-19] MEDS ORDERED: TIZANIDINE 4MG TABLET PO PRN (17:30)
[2019-05-19 20:00] VITALS: BP 122/88
[2019-05-19 20:30] VITALS: BP 119/70
[2019-05-19] MEDS: ATORVASTATIN 80 MG TABLET PO SCH (20:31)
[2019-05-19] MEDS: PRAZOSIN 1 MG CAPSULE PO SCH (20:32)
[2019-05-19] MEDS: OLANZAPINE 2.5 MG TABLET PO SCH (20:32)
[2019-05-19 21:47] VITALS: BP 108/77
[2019-05-20] MEDS: BUTALB/APAP/CAFFEINE 50MG/325MG/40MG PO PRN (00:56)
[2019-05-20 00:59] VITALS: BP 101/69
[2019-05-20 03:25] VITALS: BP 113/78
[2019-05-20] MEDS: OXYcodone/APAP 5/325MG TABLET PO PRN ×2 (06:09→16:19)
[2019-05-20 07:26] VITALS: BP 128/94
[2019-05-20] MEDS: SERTRALINE 50MG TABLET PO SCH (09:34)
[2019-05-20] MEDS: CLOPIDOGREL 75 MG TABLET PO SCH (09:34)
[2019-05-20] MEDS: ENOXAPARIN 40 MG/0.4 ML SQ SCH (09:34)
[2019-05-20] MEDS: PROPRANOLOL 20 MG TABLET PO SCH (09:34)
--- NOTE | 2019-05-20 12:21 | NUR ---
REC: Reg/thins Addendum: 05/20/19 at 1222 by Aditi CHAMPAGNE Amended: Links added.
[2019-05-20] MEDS ORDERED: TRAM50TA2 PO (12:52)
[2019-05-20 14:22] VITALS: BP 116/82
[2019-05-20] MEDS ORDERED: FLU VAC QS 19-20(4YR UP)CEL/PF 0.5 ML IM-VACC ONE (14:30)
== END 2019-05-20 16:08 | DRG 198 ==
LOC: ED 22:44 → EDIP 22:45 → 4EST 23:58
PROVIDERS: ADMIT Family Medicine; ATTEND Family Medicine
DX: R07.89 Other chest pain (principal); I25.10 Atherosclerotic heart disease of native coronary artery without angina pectoris; F33.2 Major depressive disorder, recurrent severe without psychotic features; I11.9 Hypertensive heart disease without heart failure; E11.9 Type 2 diabetes mellitus without complications; E78.5 Hyperlipidemia, unspecified; F43.10 Post-traumatic stress disorder, unspecified; X58.XXXA Exposure to other specified factors, initial encounter; Y93.89 Activity, other specified; Y92.89 Other specified places as the place of occurrence of the external cause; Y99.8 Other external cause status; Z88.8 Allergy status to other drugs, medicaments and biological substances; Z91.018 Allergy to other foods; I69.351 Hemiplegia and hemiparesis following cerebral infarction affecting right dominant side; J45.20 Mild intermittent asthma, uncomplicated; Z79.02 Long term (current) use of antithrombotics/antiplatelets; Z82.49 Family history of ischemic heart disease and other diseases of the circulatory system; Z90.49 Acquired absence of other specified parts of digestive tract; Z98.1 Arthrodesis status; R33.9 Retention of urine, unspecified; Z73.3 Stress, not elsewhere classified; R06.02 Shortness of breath
CPT/HCPCS: 36415; 70450; 70551; 71045; 71275; 78452; 80048; 80053; 83880; 84484; 85025; 85379; 90674; 93005; 93017; G0378; J1650; J2405; J2785; Q9967; A9502; C9898; J2270